=== PATIENT | female | born 1960 ===

== ENCOUNTER 2020-08-29 13:52 | Emergency (ER) | payer SELFPAY ==
[2020-08-29 14:29] LABS: Absolute Lymphocytes (CBC) 1.9 K/uL (0.7-4.9); Basophils % 1.1 % (0-1.3); Hematocrit 41.7 % (36.0-45.0); Lymphocytes % 30.5 % (15.3-44.8); MPV 8.4 fL (7.6-11.3); RBC Red Blood Cell Count 4.37 M/uL (3.86-4.86)
[2020-08-29] MEDS ORDERED: FAMOTIDINE 20 MG/2 ML VIAL IV ONE (14:37)
[2020-08-29] MEDS ORDERED: ONDANSETRON 4 MG/2 ML VIAL ONE ×2 (14:37→14:49)
[2020-08-29] MEDS ORDERED: MORPHINE 2 MG/ML SYR ONE (14:37)
[2020-08-29] MEDS ORDERED: NA CHLORIDE 0.9% 500 ML ONE (14:37)
[2020-08-29 14:41] LABS: Protime INR 0.93
[2020-08-29 14:50] LABS: ALT/SGPT 19 U/L (12-78); AST/SGOT 15 U/L (15-37); Albumin 3.9 g/dL (3.4-5.0); Alkaline Phosphatase 82 U/L (45-117); BUN Blood Urea Nitrogen 12 mg/dL (7-18); Bicarbonate 25 mmol/L (21-32); Bilirubin Direct < 0.1 mg/dL (0-0.2); Bilirubin Total 0.3 mg/dL (0.2-1.0); Glucose Level 106 mg/dL (74-106); Magnesium 2.1 mg/dL (1.8-2.4); NT PRO-BNP 81 pg/mL (<125); Potassium 3.6 mmol/L (3.5-5.1); Sodium Level 141 mmol/L (136-145); Troponin (Emerg Dept Use Only) < 0.02 ng/mL (0.0-0.045)
[2020-08-29] MEDS ORDERED: PROMETHAZINE INJ 25 MG/ML AMP ONE (15:09)
--- NOTE | 2020-08-29 15:35 | RAD REPORT ---
EXAM DESCRIPTION: RAD - Chest Single View - 08/29/2020 2:21 pm CLINICAL HISTORY: headache, hypertension COMPARISON: None TECHNIQUE: AP portable chest image was obtained 08/29/2020 2:21 pm . FINDINGS: Lungs are clear. Heart and vasculature are normal. No measurable pleural effusion and no p neumothorax. No acute bony abnormality seen. No acute aortic findings suspected. IMPRESSION: No acute cardiopulmonary process.
--- NOTE | 2020-08-29 15:39 | RAD REPORT ---
EXAM DESCRIPTION: CT - Head Brain Wo Cont - 08/29/2020 3:13 pm CLINICAL HISTORY: hypertension;Headache COMPARISON: No comparisons TECHNIQUE: Axial 5 mm thick images of the head were obtained without IV contrast. All CT scans are performed using dose optimization technique as appropriate and may include automated exposure control or mA/KV adjustment according to patient size. FINDINGS: No intracranial hemorrhage, mass, edema or shift of mid-line structures. No acute infarcti on changes seen. No abnormal extra-axial fluid collections. Ventricles are normal. No measurable atro phy chronic ischemic change. Mastoid air cells are clear. Prominent circumferential mucosal thickening in the left maxillary sinus with air-fluid level. There is sclerotic, thickened appearance to the left maxillary sinus herrera. r-fluid level present in the right maxillary sinus. Ethmoid air cells and frontal sinuses are nearly fully opacified. Trace mucosal thickening in the sphenoid sinus. No acute bony findings. IMPRESSION: No intracranial abnormality identified. Acute sinusitis right maxillary sinus, acute and chronic sinusitis left maxillary sinus and extensive mucosal thickening in the ethmoid and frontal sinuses.
--- NOTE | 2020-08-29 16:48 | RAD REPORT ---
EXAM DESCRIPTION: CT - Neck Angio - 08/29/2020 4:32 pm CLINICAL HISTORY: HEADACHEheadache, blurred vision TECHNIQUE: During dynamic enhancement using nonionic IV contrast, axial 2 mm thick images of the nec k were obtained. Sagittal and axial reconstruction images were generated using MIP technique and revi ewed. All CT scans are performed using dose optimization technique as appropriate and may include automated exposure control or mA/KV adjustment according to patient size. COMPARISON: CT head same date FINDINGS: No aneurysm or vascular malformation identified. No carotid or vertebral dissection. No aortic arch or great vessel origin abnormality seen. Vertebral artery origins unremarkable as well . No stenosis, vasculitis or other significant carotid artery finding. Calcifications at the left car otid bulb do not cause luminal narrowing. No focal abnormality of either vertebral artery. Basilar ar mary kay is normal. Motion artifact caused blurring of some images. IMPRESSION: Negative CT angio neck examination for acute or significant finding.
--- NOTE | 2020-08-29 16:50 | RAD REPORT ---
EXAM DESCRIPTION: CT - Head angio - 08/29/2020 4:31 pm CLINICAL HISTORY: HEADACHE TECHNIQUE: During dynamic enhancement using nonionic IV contrast, axial 1 millimeter thick images of the head were obtained. Sagittal and axial reconstruction images were generated using MIP technique and reviewed. All CT scans are performed using dose optimization technique as appropriate and may include automated exposure control or mA/KV adjustment according to patient size. FINDINGS: No aneurysm or vascular malformation identified. Major venous sinuses are patent. No stenosis, named branch occlusion, vasculitis or other significant vascular finding identifiable. Anterior communicating artery is present. Patient has a small A1 right anterior cerebral artery segme nt is a normal variant. IMPRESSION: Negative CT angio head examination for acute or significant finding.
[2020-08-29] MEDS ORDERED: HYDRALAZINE HCL 20 MG/ML VIAL ONE (18:06)
[2020-08-29] MEDS ORDERED: lisinopriL 20 MG TAB ONE (18:06)
--- NOTE | 2020-08-29 18:28 | ER ---
Nurse's Notes [facility] Name: Maeve Carranza Age: 60 yrs Sex: Female : 1960 Arrival Date: 08/29/2020 Time: 13:57 Bed 25 Private MD: Diagnosis: Headache;Hypertensive heart disease;Nausea and vomiting Presentation: 08/29 13:58 Chief complaint: EMS states: pt called c/o of headache, nausea, blurred vision, zb dizziness, blood pressure in 210-200's systolic. denies chest pain. hx of HTN. takes lisinopril 5mg. other VSS. Coronavirus screen: At this time, the client does not indicate any symptoms associated with coronavirus-19. Ebola Screen: No symptoms or risks identified at this time. Initial Sepsis Screen: Does the patient meet any 2 criteria? No. Patient's initial sepsis screen is negative. Does the patient have a suspected source of infection? No. Patient's initial sepsis screen is negative. Risk Assessment: Do you want to hurt yourself or someone else? Patient reports no desire to harm self or others. Onset of symptoms was August 29, 2020. 13:58 Acuity: JUSTICE 3 zb 13:58 Method Of Arrival: EMS: [facility] zb Triage Assessment: 13:38 General: Appears in no apparent distress. uncomfortable, Behavior is cooperative, zb anxious. Pain: Complains of pain in headache Pain does not radiate. Pain currently is 10 out of 10 on a pain scale. Quality of pain is described as aching, sharp. EENT: No signs and/or symptoms were reported regarding the EENT system. Neuro: Level of Consciousness is awake, alert, obeys commands, Oriented to person, place, time, situation, Reports blurred vision since today dizziness, since today headache frontal area, weakness in generalized. Cardiovascular: Capillary refill < 3 seconds in bilateral fingers Patient's skin is warm and dry. Respiratory: Airway is patent Respiratory effort is even, unlabored, Respiratory pattern is regular, symmetrical. GI: Abdomen is flat, non-distended, Pt is actively vomiting clear fluid, Bowel sounds present X 4 quads. : No signs and/or symptoms were reported regarding the genitourinary system. Derm: Skin is intact, Skin is diaphoretic, Skin is normal, Skin temperature is warm. Musculoskeletal: Circulation, motion, and sensation intact. Capillary refill < 3 seconds, in bilateral fingers. Range of motion: intact in all extremities. Historical: - Allergies: 14:09 PENICILLINS; zb - Home Meds: 14:09 lisinopril 5 mg Oral tab 1 tab once daily [Active]; zb - PMHx: 17:28 Hypertension; zb - PSHx: 14:09 None; zb - Immunization history:: Adult Immunizations up to date. - Social history:: Smoking status: Patient/guardian denies using tobacco, Stopped _ months ago 2. Screenin:38 Abuse screen: Denies threats or abuse. Denies injuries from another. Nutritional zb screening: No deficits noted. Tuberculosis screening: No symptoms or risk factors identified. Fall Risk No fall in past 12 months (0 pts). No secondary diagnosis (0 pts). IV access (20 points). Ambulatory Aid- None/Bed Rest/Nurse Assist (0 pts). Gait- Weak (10 pts.). Mental Status- Oriented to own ability (0 pts). Total Crawford Fall Scale indicates Low Risk Score (25-44 pts). Fall prevention measures have been instituted. Side Rails Up X 2 Placed close to Nursing Station Frequent Obs/Assesments occuring Family Present and informed to notify staff if they need to leave bedside As available Patient and Family Educated on Fall Prevention Program and strategies. Assessment: 13:38 Reassessment: See triage note. zb 14:30 Reassessment: pt continues to have nausea, and dizziness. VAN SCORE negative. zb 15:32 Reassessment: Patient appears in no apparent distress at this time. Patient and/or zb family updated on plan of care and expected duration. Pain level reassessed. Patient is alert, oriented x 3, equal unlabored respirations, skin warm/dry/pink. pt ambulated to restroom, c/o of nausea and dizziness. no active vomiting but patient continues to spit up. 16:30 Reassessment: Patient appears in no apparent distress at this time. Patient and/or zb family updated on plan of care and expected duration. Pain level reassessed. Patient is alert, oriented x 3, equal unlabored respirations, skin warm/dry/pink. c/o nausea notified ECP. medication given. 17:24 Reassessment: Patient appears in no apparent distress at this time. Patient and/or zb family updated on plan of care and expected duration. Pain level reassessed. Patient is alert, oriented x 3, equal unlabored respirations, skin warm/dry/pink. pt currenly asleep. lights dimmed. no c/o at this time. 18:30 Reassessment: Patient appears in no apparent distress at this time. Patient and/or zb family updated on plan of care and expected duration. Pain level reassessed. Patient is alert, oriented x 3, equal unlabored respirations, skin warm/dry/pink. pt states she is feeling a lot better. ECP at bedside to discussing POC. blood pressure had dramatically increased. Patient denies pain at this time. Patient states feeling better. Patient states symptoms have improved. Vital Signs: 13:58 BP 192 / 136; Pulse 98; Resp 20; Temp 98.2; Pulse Ox 99% on R/A; Weight 63.05 kg; zb Height 5 ft. 5 in. (165.10 cm); Pain 10/10; 14:19 BP 195 / 87; Pulse 70; Resp 18; Pulse Ox 100% on R/A; zb 15:00 BP 189 / 94; Pulse 90; Resp 18; Pulse Ox 100% on R/A; zb 16:00 BP 190 / 100; Pulse 83; Resp 18; Pulse Ox 99% on R/A; zb 17:21 BP 185 / 101; Pulse 77; Resp 16; Pulse Ox 98% on R/A; zb 18:24 BP 164 / 78; Pulse 83; Resp 16; Pulse Ox 98% on R/A; zb 18:45 BP 176 / 90; Pulse 75; Resp 16; Pulse Ox 98% on R/A; zb 13:58 Body Mass Index 23.13 (63.05 kg, 165.10 cm) zb ED Course: 13:38 EKG done, by certified nuclear medicine technologist. reviewed by Daniel MEJIA. zb 13:57 Patient arrived in ED. zb 13:58 Daniel Serrano PA is PHCP. cp 13:58 Suhail Grey MD is Attending Physician. cp 14:08 Triage completed. zb 14:22 XRAY Chest (1 view) In Process Unspecified. EDMS 14:50 Natividad Maya, RN is Primary Nurse. zb 15:05 Inserted saline lock: 20 gauge in left antecubital area, using aseptic technique. Blood dh4 collected. 15:13 CT Head Brain wo Cont In Process Unspecified. EDMS 16:31 CT Head Angio In Process Unspecified. EDMS 16:32 CT Neck Angio In Process Unspecified. EDMS 17:25 Patient has correct armband on for positive identification. Placed in gown. Call light zb in reach. Side rails up X 1. leather whitener on. Pulse ox on. NIBP on. Door closed. Noise minimized. 17:30 Arm band placed on. zb 19:00 No provider procedures requiring assistance completed. IV discontinued, intact, zb bleeding controlled, No redness/swelling at site. Pressure dressing applied. Administered Medications: 14:28 Drug: Pepcid 20 mg Route: IVP; Site: left forearm; zb 14:30 Follow up: Response: No adverse reaction; Nausea unchanged zb 14:28 Drug: morphine 2 mg Route: IVP; Site: left forearm; zb 14:35 Follow up: Response: No adverse reaction; Pain is decreased zb 14:28 Drug: NS 0.9% 500 ml Route: IV; Rate: bolus; Site: left forearm; zb 14:29 Drug: Zofran (Ondansetron) 4 mg Route: IVP; Site: left forearm; zb 14:38 Follow up: Response: No adverse reaction; Nausea unchanged zb 14:30 Drug: Zofran (Ondansetron) 4 mg Route: IVP; Site: left forearm; zb 17:20 Follow up: Response: No adverse reaction zb 14:59 Drug: Phenergan 12.5 mg Route: IVP; Site: left forearm; zb 15:00 Follow up: Response: No adverse reaction; Nausea unchanged zb 15:09 Drug: Phenergan 12.5 mg Route: IVP; Site: left forearm; zb 17:20 Follow up: Response: No adverse reaction; Marked relief of symptoms; Nausea is decreasedzb 16:12 Drug: Reglan 10 mg Route: IVP; Site: left forearm; zb 17:20 Follow up: Response: No adverse reaction zb 16:13 Drug: Demerol - Meperidine 12.5 mg Route: IVP; Site: left forearm; zb 17:20 Follow up: Response: No adverse reaction; Pain is decreased; RASS: Alert and Calm (0) zb 17:55 Drug: Lisinopril 20 mg Route: PO; zb 18:59 Follow up: Response: No adverse reaction; Blood pressure is lowered zb 17:55 Drug: hydrALAZINE 10 mg Route: IV; Rate: calculated rate; Site: left forearm; zb 18:59 Follow up: Response: No adverse reaction; Blood pressure is lowered zb Outcome: 18:28 Discharge ordered by . heike 19:00 Discharged to home ambulatory. zb 19:00 Condition: stable 19:00 Discharge instructions given to patient, Instructed on discharge instructions, follow up and referral plans. medication usage, Demonstrated understanding of instructions, follow-up care, medications, Prescriptions given X 2. 19:13 Patient left the ED. zb Signatures: Dispatcher [employer] EDMS Daniel Serrano PA PA cp Huhn, Donald 4 Natividad Maya RN RN zb
--- NOTE | 2020-08-29 18:29 | EDPHYS ---
Physician Documentation [facility] Name: Maeve Carranza Age: 60 yrs Sex: Female : 1960 Arrival Date: 08/29/2020 Time: 13:57 Bed 25 Private MD: ED Physician Suhail Grey HPI: 08/29 14:15 This 60 yrs old Female presents to ER via EMS with complaints of High Blood Pressure. cp 14:15 The patient has elevated blood pressure and discovered this EMS. cp 14:15 Onset: The symptoms/episode began/occurred today. Patient brought to ED via EMS after cp being called for dizziness, nausea/vomiting, blurred vision. EMS reports patient with systolic blood pressure in 200-210 range. Patient reports history of hypertension and currently taking lisinopril 5 mg. No PCP. Reports medications prescribed from [facility]. Historical: - Allergies: 14:09 PENICILLINS; zb - Home Meds: 14:09 lisinopril 5 mg Oral tab 1 tab once daily [Active]; zb - PMHx: 17:28 Hypertension; zb - PSHx: 14:09 None; zb - Immunization history:: Adult Immunizations up to date. - Social history:: Smoking status: Patient/guardian denies using tobacco, Stopped _ months ago 2. ROS: 14:15 Constitutional: Positive for poor PO intake, Negative for body aches, chills, fever. cp 14:15 Eyes: Positive for visual disturbance. cp 14:15 ENT: Negative for ear pain, sore throat, difficulty swallowing, difficulty handling secretions. 14:15 Cardiovascular: Negative for chest pain, palpitations. 14:15 Respiratory: Negative for cough, shortness of breath, wheezing. 14:15 Abdomen/GI: Positive for nausea and vomiting, Negative for diarrhea, constipation, hematemesis. 14:15 Neuro: Positive for headache, Negative for altered mental status, loss of consciousness, syncope, weakness. 14:15 All other systems are negative. Exam: 14:10 ECG was reviewed by the Attending Physician. cp 14:15 Constitutional: The patient appears in no acute distress, alert, awake, cp non-diaphoretic, non-toxic, well developed, well nourished, uncomfortable. 14:15 Head/Face: Normocephalic, atraumatic. cp 14:15 Eyes: Periorbital structures: appear normal, Pupils: equal, round, and reactive to light and accomodation, Extraocular movements: intact throughout, Conjunctiva: normal, no exudate, no injection, Sclera: no appreciated abnormality, Lids and lashes: appear normal, bilaterally. 14:15 ENT: External ear(s): are unremarkable, Nose: is normal, Mouth: Lips: moist, Oral mucosa: moist, Posterior pharynx: Airway: no evidence of obstruction, patent. 14:15 Neck: ROM/movement: is normal, is supple, without pain, no range of motions limitations, no nuchal rigidity. 14:15 Chest/axilla: Inspection: normal, Palpation: is normal, no crepitus, no tenderness. 14:15 Cardiovascular: Rate: normal, Rhythm: regular, Edema: is not appreciated, JVD: is not appreciated. 14:15 Respiratory: the patient does not display signs of respiratory distress, Respirations: normal, no use of accessory muscles, no retractions, labored breathing, is not present, Breath sounds: are clear throughout, no decreased breath sounds, no stridor. 14:15 Abdomen/GI: Inspection: abdomen appears normal, Bowel sounds: active, all quadrants, Palpation: abdomen is soft and non-tender, in all quadrants. 14:15 Neuro: Orientation: to person, place \T\ time. Mentation: is normal, Cerebellar function: Romberg testing is negative, normal finger to nose testing, Motor: moves all fours, strength is normal, Sensation: no obvious gross deficits. Vital Signs: 13:58 BP 192 / 136; Pulse 98; Resp 20; Temp 98.2; Pulse Ox 99% on R/A; Weight 63.05 kg; zb Height 5 ft. 5 in. (165.10 cm); Pain 10/10; 14:19 BP 195 / 87; Pulse 70; Resp 18; Pulse Ox 100% on R/A; zb 15:00 BP 189 / 94; Pulse 90; Resp 18; Pulse Ox 100% on R/A; zb 16:00 BP 190 / 100; Pulse 83; Resp 18; Pulse Ox 99% on R/A; zb 17:21 BP 185 / 101; Pulse 77; Resp 16; Pulse Ox 98% on R/A; zb 18:24 BP 164 / 78; Pulse 83; Resp 16; Pulse Ox 98% on R/A; zb 18:45 BP 176 / 90; Pulse 75; Resp 16; Pulse Ox 98% on R/A; zb 13:58 Body Mass Index 23.13 (63.05 kg, 165.10 cm) zb MDM: 14:04 Patient medically screened. cp 15:00 Differential diagnosis: hypertensive crisis, Malignant HTN, CVA, intracerebral cp hemorrhage. 18:27 Data reviewed: vital signs, nurses notes, lab test result(s), EKG, radiologic studies, cp CT scan, plain films, I have discussed the patient's presentation/case with the attending Emergency Department Physician; and as a result, I will discharge patient. 18:27 Test interpretation: by ED physician or midlevel provider: ECG. Counseling: I had a cp detailed discussion with the patient and/or guardian regarding: the historical points, exam findings, and any diagnostic results supporting the discharge/admit diagnosis, the presence of at least one elevated blood pressure reading (>120/80) during this emergency department visit, lab results, radiology results, the need for outpatient follow up, for definitive care, a family practitioner, to return to the emergency department if symptoms worsen or persist or if there are any questions or concerns that arise at home. Response to treatment: the patient's symptoms have markedly improved after treatment, VSS. Blood pressure improved, headache and nausea improved. Vomiting resolved. Will discharge to home for continued monitoring. 08/29 14:06 Order name: Basic Metabolic Panel; Complete Time: 14:51 cp 08/29 14:54 Interpretation: Normal except: CL 109. cp 08/29 14:06 Order name: CBC with Diff; Complete Time: 14:51 cp 08/29 14:06 Order name: LFT's; Complete Time: 14:51 cp 08/29 14:54 Interpretation: Normal except: GLOB 4.1; A/G 1.0. cp 08/29 14:06 Order name: Magnesium; Complete Time: 14:51 cp 08/29 14:06 Order name: NT PRO-BNP; Complete Time: 14:51 cp 08/29 14:06 Order name: PT-INR; Complete Time: 14:51 cp 08/29 14:06 Order name: Troponin (emerg Dept Use Only); Complete Time: 14:51 cp 08/29 14:06 Order name: XRAY Chest (1 view); Complete Time: 15:47 cp 08/29 14:52 Order name: CT Head Brain wo Cont; Complete Time: 15:47 cp 08/29 15:50 Order name: CT Head Angio; Complete Time: 17:00 cp 08/29 15:50 Order name: CT Neck Angio; Complete Time: 17:00 cp 08/29 18:33 Order name: Urine Dipstick--Ancillary (enter results) em1 08/29 14:06 Order name: EKG; Complete Time: 14:07 cp 08/29 14:06 Order name: Cardiac monitoring; Complete Time: 15:05 cp 08/29 14:06 Order name: EKG - Nurse/Tech; Complete Time: 15:05 cp 08/29 14:06 Order name: IV Saline Lock; Complete Time: 15:04 cp 08/29 14:06 Order name: Labs collected and sent; Complete Time: 15:04 cp 08/29 14:06 Order name: O2 Per Protocol; Complete Time: 15:04 cp 08/29 14:06 Order name: O2 Sat Monitoring; Complete Time: 15:04 cp 08/29 17:13 Order name: PO challenge; Complete Time: 17:56 cp EC:10 Rate is 74 beats/min. Rhythm is regular. MA interval is normal. QRS interval is normal. cp QT interval is normal. T waves are Inverted in leads aVL, aVR. Interpreted by me. Reviewed by me. Administered Medications: 14:28 Drug: Pepcid 20 mg Route: IVP; Site: left forearm; zb 14:30 Follow up: Response: No adverse reaction; Nausea unchanged zb 14:28 Drug: morphine 2 mg Route: IVP; Site: left forearm; zb 14:35 Follow up: Response: No adverse reaction; Pain is decreased zb 14:28 Drug: NS 0.9% 500 ml Route: IV; Rate: bolus; Site: left forearm; zb 14:29 Drug: Zofran (Ondansetron) 4 mg Route: IVP; Site: left forearm; zb 14:38 Follow up: Response: No adverse reaction; Nausea unchanged zb 14:30 Drug: Zofran (Ondansetron) 4 mg Route: IVP; Site: left forearm; zb 17:20 Follow up: Response: No adverse reaction zb 14:59 Drug: Phenergan 12.5 mg Route: IVP; Site: left forearm; zb 15:00 Follow up: Response: No adverse reaction; Nausea unchanged zb 15:09 Drug: Phenergan 12.5 mg Route: IVP; Site: left forearm; zb 17:20 Follow up: Response: No adverse reaction; Marked relief of symptoms; Nausea is decreasedzb 16:12 Drug: Reglan 10 mg Route: IVP; Site: left forearm; zb 17:20 Follow up: Response: No adverse reaction zb 16:13 Drug: Demerol - Meperidine 12.5 mg Route: IVP; Site: left forearm; zb 17:20 Follow up: Response: No adverse reaction; Pain is decreased; RASS: Alert and Calm (0) zb 17:55 Drug: Lisinopril 20 mg Route: PO; zb 18:59 Follow up: Response: No adverse reaction; Blood pressure is lowered zb 17:55 Drug: hydrALAZINE 10 mg Route: IV; Rate: calculated rate; Site: left forearm; zb 18:59 Follow up: Response: No adverse reaction; Blood pressure is lowered zb Disposition: 19:15 Chart complete. 08/30 07:09 Co-signature as Attending Physician, Suhail Grey MD. rn Disposition: 08/29/20 18:28 Discharged to Home. Impression: Headache, Hypertensive heart disease, Nausea and vomiting. - Condition is Stable. - Discharge Instructions: Hypertension, How to Take Your Blood Pressure, [id number], Managing Your Hypertension, Form - Blood Pressure Record Sheet. - Prescriptions for Lisinopril 20 mg Oral Tablet - take 1 tablet by ORAL route once daily; 20 tablet. Zofran 4 mg Oral Tablet - take 1 tablet by ORAL route every 12 hours As needed; 20 tablet. - Medication Reconciliation Form, Thank You Letter, Antibiotic Education, Prescription Opioid Use form. - Follow up: Private Physician; When: 2 - 3 days; Reason: Recheck today's complaints. - Problem is new. - Symptoms have improved. Signatures: Dispatcher [employer] EDSuhail Caceres MD MD rn Page, Corey, PA PA cp Brown, Zipporah, RN RN zb Corrections: (The following items were deleted from the chart) 08/29 18:30 18:28 08/29/2020 18:28 Discharged to Home. Impression: Headache; Hypertensive heart cp disease. Condition is Stable. Forms are Medication Reconciliation Form, Thank You Letter, Antibiotic Education, Prescription Opioid Use. Follow up: Private Physician; When: 2 - 3 days; Reason: Recheck today's complaints. Problem is new. Symptoms have improved. cp 19:13 18:30 08/29/2020 18:28 Discharged to Home. Impression: Headache; Hypertensive heart zb disease; Nausea and vomiting. Condition is Stable. Discharge Instructions: Hypertension, How to Take Your Blood Pressure, [id number], Managing Your Hypertension, Form - Blood Pressure Record Sheet. Prescriptions for Lisinopril 20 mg Oral Tablet - take 1 tablet by ORAL route once daily; 20 tablet, Zofran 4 mg Oral Tablet - take 1 tablet by ORAL route every 12 hours As needed; 20 tablet. and Forms are Medication Reconciliation Form, Thank You Letter, Antibiotic Education, Prescription Opioid Use. Follow up: Private Physician; When: 2 - 3 days; Reason: Recheck today's complaints. Problem is new. Symptoms have improved. cp
[2020-08-29 19:19] VITALS: TEMP 98.2
[2020-08-29 19:24] VITALS: O2SAT 98
[2020-08-29 19:26] VITALS: BP 176/90
[2020-08-29 20:07] LABS: Urine Blood NEGATIVE (NEG); Urine Glucose NEGATIVE (NEG); Urine Protein NEGATIVE (NEG); Urine Specific Gravity 1.025 (1.005-1.030); Urine pH 7.5 (5.0-7.0)
[2020-08-30] MEDS ORDERED: MEPERIDINE HCL 25 MG/ML SYR ONE (00:21)
[2020-08-30] MEDS ORDERED: METOCLOPRAMIDE 10 MG/2mL INJ ONE (00:29)
--- NOTE | 2020-08-30 07:25 | EKG ---
Test Date: 2020-08-29 Test Time: 14:04:19 Senior Manager Quality Assurance: JENNYFER MEASUREMENT RESULTS: Intervals: Rate: 74 TX: 130 QRSD: 82 QT: 394 QTc: 437 [place]: P: 67 TX: 130 QRS: 75 T: 66 INTERPRETIVE STATEMENTS: Normal sinus rhythm Septal infarct, age undetermined Abnormal ECG No previous ECG available for comparison Electronically Signed On 08-30-20 07:24:05 PAINTER FOREMAN by Harris Diaz
== END 2020-08-29 19:13 | disposition home or self-care (01) ==
LOC: ER 13:52
DX: I11.9 Hypertensive heart disease without heart failure (principal); R51.9 Headache, unspecified; Z87.891 Personal history of nicotine dependence; R42 Dizziness and giddiness; R11.2 Nausea with vomiting, unspecified; H53.8 Other visual disturbances
CPT/HCPCS: 36415; 70450; 70496; 70498; 71045; 80048; 80076; 81003; 83735; 83880; 84484; 85025; 85610; 93005; 96374; 96375; 99285; J0360; J2270; J2405; J2550; J7040; Q9967